=== PATIENT | female | born 2000 | race Caucasian/White ===

== ENCOUNTER 2021-12-21 11:47 | Emergency (ER) | payer MEDICAID ==
[~2021-12-21] VITALS: Ht 167.6 cm; Wt 68.2 kg
[2021-12-21 12:06] VITALS: TEMP 98.1
[2021-12-21 12:44] LABS: BASO % 0.3 % (0.0-2.0); EOS # 0.1 K/mm3 (0.0-0.7); EOS % 0.5 % (0.0-4.0); GRAN # 10.9 K/mm3 (1.4-6.5); GRAN % 78.5 % (42.2-75.2); HEMATOCRIT 38.8 % (35.0-45.0); HEMOGLOBIN 13.2 g/dl (12.0-15.0); LYMPH # 1.6 K/mm3 (1.2-3.4); LYMPH % 11.5 % (20.0-51.0); MEAN CELL VOLUME 85 fl (80.0-95.0); MEAN CORPUSCULAR HEMOGLOBIN 29 pg (26-32); MEAN CORPUSCULAR HGB CONC 34 g/dl (33.0-37.0); MEAN PLATELET VOLUME 10.1 fl (7.4-10.4); MONO # 1.2 K/mm3 (0.1-0.6); MONO % 8.8 % (1.7-9.3); PLATELET COUNT 291 K/mm3 (130-400); RED BLOOD COUNT 4.57 M/mm3 (4.10-5.30); REDCELL DISTRIBUTION WIDTH-CV 13.1 % (11.5-14.5)
[2021-12-21 13:02] LABS: ALANINE AMINOTRANSFERASE 11 U/L (0-55); ALBUMIN 4.1 gm/dL (3.5-5.0); ALKALINE PHOSPHATASE 70 U/L (40-150); ANION GAP 11 mmol/L (7-16); AST,SGOT 15 U/L (5-34); BILIRUBIN,TOTAL 0.6 mg/dL (0.2-1.2); BLOOD UREA NITROGEN 5 mg/dL (7-19); CALCIUM 9.1 mg/dL (8.4-10.2); CARBON DIOXIDE 21 mmol/L (22-29); CHLORIDE 107 mmol/L (98-107); CREATININE, serum 0.62 mg/dL (0.57-1.11); GLUCOSE 100 mg/dL (70-99); POTASSIUM 3.7 mmol/L (3.5-4.5); SODIUM 139 mmol/L (136-145); TOTAL PROTEIN 7.8 gm/dL (6.2-8.1)
[2021-12-21 13:12] LABS: TROPONIN-I < 0.010 ng/mL (0.00-0.033)
[2021-12-21 15:57] LABS: COLLECTION METHOD CLEAN CATCH
[2021-12-21 16:16] LABS: TRICYCLIC ANTIDEPRESS URINE NEGATIVE
[2021-12-21 16:21] LABS: MUCOUS Present (NOT PRESENT); PH 6 (5-8); URINE APPEARANCE Clear (CLEAR/HAZY); URINE BACTERIA Rare /hpf (NONE SEEN); URINE BILIRUBIN Negative (NEGATIVE); URINE BLOOD Negative (NEGATIVE); URINE COLOR Yellow (YELLOW); URINE GLUCOSE Negative (NEGATIVE); URINE KETONE 1+ (NEGATIVE); URINE LEUKOCYTE ESTERASE Negative (NEGATIVE); URINE NITRATE Negative (NEGATIVE); URINE PROTEIN(semi-quant) Negative (NEGATIVE); URINE UROBILINOGEN Negative (NEGATIVE)
[2021-12-21 18:29] LABS: TSH w REFLEX 0.868 uIU/mL (0.350-4.940)
[2021-12-21] MEDS ORDERED: MOTRIN 400400 MG/TAB PO (18:38)
[2021-12-21] MEDS ORDERED: TOPROL XL 25MG25 MG PO (18:38)
[2021-12-21 18:55] VITALS: BP 128/83; PULSE 123
== END 2021-12-21 18:57 | disposition home or self-care (01) ==
LOC: COL.ER 11:47
PROVIDERS: Physician Assistant
DX: I31.9 Disease of pericardium, unspecified (principal); F41.9 Anxiety disorder, unspecified; J90 Pleural effusion, not elsewhere classified; R00.0 Tachycardia, unspecified
CPT/HCPCS: J1885; J2060; J2270; J2405; J7030; Q9967

== ENCOUNTER 2022-01-06 18:26 | Emergency (ER) | payer MEDICAID ==
[~2022-01-06] VITALS: Ht 167.6 cm; Wt 70.9 kg
[~2022-01-06 18:26] MED LIST: MOTRIN 400400 MG/TAB PO; TOPROL XL 25MG25 MG PO
[2022-01-06 18:37] VITALS: TEMP 97.8
[2022-01-06 18:54] LABS: BASO # 0.1 K/mm3 (0.0-0.2); BASO % 0.8 % (0.0-2.0); EOS # 0.2 K/mm3 (0.0-0.7); GRAN # 5.1 K/mm3 (1.4-6.5); GRAN % 59.6 % (42.2-75.2); HEMATOCRIT 42.1 % (35.0-45.0); HEMOGLOBIN 14.7 g/dl (12.0-15.0); LYMPH # 2.8 K/mm3 (1.2-3.4); LYMPH % 32.3 % (20.0-51.0); MEAN CELL VOLUME 83 fl (80.0-95.0); MEAN CORPUSCULAR HEMOGLOBIN 29 pg (26-32); MEAN CORPUSCULAR HGB CONC 35 g/dl (33.0-37.0); MEAN PLATELET VOLUME 10.1 fl (7.4-10.4); MONO # 0.4 K/mm3 (0.1-0.6); MONO % 5.1 % (1.7-9.3); PLATELET COUNT 336 K/mm3 (130-400); RED BLOOD COUNT 5.06 M/mm3 (4.10-5.30); REDCELL DISTRIBUTION WIDTH-CV 12.7 % (11.5-14.5)
[2022-01-06 19:10] LABS: ALANINE AMINOTRANSFERASE 10 U/L (0-55); ALBUMIN 4.8 gm/dL (3.5-5.0); ALKALINE PHOSPHATASE 71 U/L (40-150); ANION GAP 16 mmol/L (7-16); AST,SGOT 18 U/L (5-34); BILIRUBIN,TOTAL 0.7 mg/dL (0.2-1.2); BLOOD UREA NITROGEN 7 mg/dL (7-19); CALCIUM 10.2 mg/dL (8.4-10.2); CARBON DIOXIDE 19 mmol/L (22-29); CHLORIDE 104 mmol/L (98-107); GLUCOSE 132 mg/dL (70-99); POTASSIUM 3.4 mmol/L (3.5-4.5); SODIUM 139 mmol/L (136-145); TOTAL PROTEIN 8.4 gm/dL (6.2-8.1)
[2022-01-06 19:18] LABS: TROPONIN-I < 0.010 ng/mL (0.00-0.033)
[2022-01-06 21:02] VITALS: BP 126/93; PULSE 78
== END 2022-01-06 21:02 | disposition home or self-care (01) ==
LOC: COL.ER 18:26
PROVIDERS: Physician Assistant
DX: R07.9 Chest pain, unspecified (principal)
CPT/HCPCS: J2060; J2550; J7030